=== PATIENT | female | born 1980 | race Caucasian/White ===

== ENCOUNTER 2017-07-02 19:41 | Emergency (ER) | payer OTHER ==
[2017-07-02] MEDS ORDERED: DIPHENHYDRAMINE 50 MG CAP PO (20:30)
[2017-07-02] MEDS: FAMOTIDINE 20 MG TAB PO (20:35)
[2017-07-02] MEDS: DEXAMETHASONE 10 MG/ML 1 ML INJ IM (20:36)
[2017-07-02] MEDS: DIPHENHYDRAMINE 25 MG CAP PO (20:47)
== END 2017-07-02 21:20 | disposition home or self-care (01) ==
LOC: FTE 19:41
DX: L50.9 Urticaria, unspecified (principal)
CPT/HCPCS: 96372; 99284-25

== ENCOUNTER 2017-07-18 14:32 | Emergency (ER) | payer OTHER | END 2017-07-18 17:09 | disposition home or self-care (01) | LOC: FTE 14:32 | DX: F41.9 Anxiety disorder, unspecified (principal) | CPT/HCPCS: 99282; Z7502 ==

== ENCOUNTER 2017-08-11 08:06 | Emergency (ER) | payer OTHER ==
[2017-08-11] MEDS: KETOROLAC 30 MG INJ IM (09:04)
[2017-08-11 09:09] LABS: URINE PH (Dip) POC 5.5 (5.0-8.5)
[2017-08-11 09:09] LABS: URINE BLOOD (Dip) POC Trace-intact (NEGATIVE); URINE GLUCOSE (Dip) POC Negative (NEGATIVE); URINE KETONES (Dip) POC Negative (NEGATIVE); URINE LEUKOCYTE EST (Dip) POC Negative (NEGATIVE); URINE NITRITE (Dip) POC Negative (NEGATIVE); URINE TOTAL PROTEIN POC Trace (NEGATIVE)
== END 2017-08-11 10:21 | disposition home or self-care (01) ==
LOC: FTE 08:06
DX: S22.32XA Fracture of one rib, left side, initial encounter for closed fracture (principal); W01.0XXA Fall on same level from slipping, tripping and stumbling without subsequent striking against object, initial encounter; Y92.9 Unspecified place or not applicable
CPT/HCPCS: 71045; 71100; 81003; 81025; 96372; 99284-25

== ENCOUNTER 2018-03-29 05:23 | Emergency (ER) | payer OTHER ==
[2018-03-29 06:07] LABS: URINE PH (Dip) POC 5.5 (5.0-8.5)
[2018-03-29 06:07] LABS: URINE BLOOD (Dip) POC 1+ (NEGATIVE); URINE GLUCOSE (Dip) POC Negative (NEGATIVE); URINE KETONES (Dip) POC Negative (NEGATIVE); URINE LEUKOCYTE EST (Dip) POC 1+ (NEGATIVE); URINE NITRITE (Dip) POC Negative (NEGATIVE); URINE TOTAL PROTEIN POC Negative (NEGATIVE)
[2018-03-29] MEDS: FLUCONAZOLE 150 MG TAB PO (06:43)
[2018-03-29 06:49] LABS: ADD UMIC YES; UR ASCORBIC ACID NEGATIVE (NEGATIVE); UR BACTERIA FEW /HPF (NONE SEEN); UR BILIRUBIN (Dip) NEGATIVE (NEGATIVE); UR BLOOD (Dip) 1+ mg/dL (NEGATIVE); UR CLARITY SLIGHTLY CLOUDY (CLEAR); UR COLOR YELLOW (YELLOW); UR GLUCOSE (Dip) NEGATIVE (NEGATIVE); UR KETONES (Dip) NEGATIVE (NEGATIVE); UR LEUKOCYTE ESTERASE (Dip) 3+ Leu/ul (NEGATIVE); UR MUCUS FEW /HPF (NONE SEEN); UR NITRITE (Dip) NEGATIVE (NEGATIVE); UR RBC 6 /HPF (0-5); UR SPECIFIC GRAVITY (Dip) 1.024 (1.003-1.030); UR SQUAMOUS EPITHELIAL CELL FEW /HPF (FEW); UR TOTAL PROTEIN (Dip) NEGATIVE (NEGATIVE); UR UROBILINOGEN (Dip) NEGATIVE (NEGATIVE); UR WBC 8 /HPF (0-5)
== END 2018-03-29 06:58 | disposition home or self-care (01) ==
LOC: FTE 05:23
DX: N39.0 Urinary tract infection, site not specified (principal); N76.0 Acute vaginitis; R10.2 Pelvic and perineal pain
CPT/HCPCS: 81001; 81003; 81025; 87086; 87591; 99283